=== PATIENT | male | born 1990 | race Caucasian/White ===

== ENCOUNTER 2022-09-27 15:50 | Emergency (ER) | payer OTHER, SELFPAY ==
[2022-09-27 16:04] VITALS: BP 119/69; PULSE 76; RESP 16; TEMP 36.3; O2SAT 99
--- NOTE | 2022-09-27 16:25 | ED.URI ---
HPI - URI/Sore Throat General Chief Complaint: Upper Respiratory Infection Stated Complaint: sinus inf Time Seen by Provider: 09/27/22 16:09 Source: patient and RN notes reviewed Mode of arrival: ambulatory Limitations: no limitations History of Present Illness HPI Narrative: Patient presents today complaining of a 3 day history of nasal congestion, severe sinus pressure, postnasal drip, dry cough. Denies fever, shortness of breath, sore throat. Denies history of asthma. He is a nonsmoker. He has taken 1 dose of Claritin and 1 dose of ibuprofen without much relief. Related Data Allergies Allergy/AdvReac Type Severity Reaction Status Date / Time clarithromycin [From Biaxin] Allergy Unknown Verified 09/27/22 16:10 Review of Systems Review of Systems: CONSTITUTIONAL: Denies body aches, fever, chills, or sweats. EYES: Denies visual changes, redness, or discharge. ENT: Denies rhinorrhea, sore throat, or otalgia.+ congestion, postnasal drip CARDIOVASCULAR: Denies chest pain, palpitations, or edema. RESPIRATORY: Denies dyspnea.+ dry cough GASTROINTESTINAL: Denies abdominal pain, nausea, vomiting, or diarrhea. GENITOURINARY: Denies dysuria or hematuria. SKIN: Denies rash, itching, or wounds. MUSCULOSKELETAL: Denies back pain, joint pain, or myalgia. NEUROLOGIC: Denies headache, numbness, tingling, or weakness. PSYCH: Denies depression or anxiety. PMFSH Comments At time of signature, I have reviewed and agree with nursing past medical, surgical, social and family history unless otherwise noted. Please see nursing chart for further information. There is no relevant family history pertinent to the presenting complaint Exam Narrative: GENERAL: Mildly ill-appearing, well-nourished, and in no acute distress. HEAD: Normocephalic, atraumatic. EYES: EOMI. No redness or drainage. Conjunctivae normal. ENT: Mucous membranes pink and moist. Nares congested with rhinorrhea. No maxillary or frontal sinus tenderness. TMs normal bilaterally. Throat normal. Uvula midline. NECK: Normal AROM. Supple. No lymphadenopathy. CHEST: No respiratory distress. Clear to auscultation. HEART: Regular rate and rhythm. No murmur appreciated. EXTREMITIES: Normal range of motion. No edema. SKIN: Warm, dry, no rash. Capillary refill normal. Normal skin turgor. NEURO: No focal deficits. Alert and oriented x3. Gait steady. PSYCH: Normal affect. No signs of depression or anxiety. Course Course Level of Care: Express Care Visit Vital Signs Vital signs: Vital Signs Temperature 97.4 F L 09/27/22 16:04 Pulse Rate 76 09/27/22 16:04 Respiratory Rate 16 09/27/22 16:04 Blood Pressure 119/69 09/27/22 16:04 Pulse Oximetry 99 09/27/22 16:04 Temperature 97.4 F L 09/27/22 16:04 Pulse Rate 76 09/27/22 16:04 Respiratory Rate 16 09/27/22 16:04 Blood Pressure 119/69 09/27/22 16:04 Pulse Oximetry 99 09/27/22 16:04 Reviewed MDM - URI/Sore Throat MDM Narrative Medical decision making narrative: Symptoms likely viral in etiology. Due to patient's severe sinus congestion I will treat with a short course of prednisone as well as suggestions for [id number] medications. Anticipatory guidance given. Differential Diagnosis Differential diagnosis: Likely upper respiratory infection, sinusitis, viral infection and bronchitis Critical Care Time Critical Care Time Critical Care Time: No Discharge Plan Discharge Clinical Impression: Upper respiratory infection Qualifiers: URI type: unspecified URI Qualified Code(s): J06.9 - Acute upper respiratory infection, unspecified Patient Disposition: Home, Self-Care Condition: Stable Instructions: Upper Respiratory Infection (DC) Additional Instructions: Your symptoms are likely due to a viral illness, which is not treated with antibiotics. Virus symptoms can last for up to 7-10 days. Take Tylenol or ibuprofen for pain or fever. Consider a decongestant olson
== END 2022-09-27 16:31 | disposition home or self-care (01) ==
PROVIDERS: Emergency Provider Nurse Practitioner; PCP Internal Medicine
DX: J06.9 Acute upper respiratory infection, unspecified (principal)
CPT/HCPCS: 99213; G0463

== ENCOUNTER 2022-12-03 03:50 | Emergency (ER) | payer OTHER, SELFPAY ==
[2022-12-03] VITALS (24 sets, daily range): BP systolic 101–155; BP diastolic 61–88; PULSE 50–84; RESP 12–29; TEMP 36.6; O2SAT 96–100
--- NOTE | ~2022-12-03 | CT_ITS ---
Non-contrast CT scan of the Abdomen and Pelvis Clinical indication: Right flank pain Technique: 2.5 mm axial scans were obtained through the abdomen and pelvis without intravenous or or al contrast. Dose reduction technique was used on this scan by utilizing automated exposure control a nd iterative reconstruction technique. The dose-length product (DLP) was 782.11 mGy-cm. Findings: Images through the lung bases reveal no abnormalities. There is no evidence of renal or ureteral calculi. The kidneys and the ureters are nondilated. The liver, spleen, pancreas, gallbladder, and adrenals appear normal. There is no aortic aneurysm. There is no evidence of bowel obstruction. Images through the pelvis were performed. There is no evidence of ascites or lymphadenopathy. Urinary bladder unremarkable. Prostate gland and seminal vesicles are unremarkable. Bilateral L5 pars intera rticularis defects are present. Impression: No acute abnormality. Bilateral L5 pars interarticularis defects. Reviewed, dictated and finalized at [facility]. Impression: No acute abnormality. Bilateral L5 pars interarticularis defects.
--- NOTE | 2022-12-03 04:04 | ECG_ITS ---
Measurements Intervals [place] Rate: 54 P: 69 DE: 277 QRS: 78 QRSD: 95 T: 47 QT: 399 QTc: 381 Interpretive Statements SINUS BRADYCARDIA WITH FIRST DEGREE AV BLOCK ABNORMAL ECG NO PREVIOUS ECG AVAILABLE FOR COMPARISON Electronically Signed On 12-03-2022 9:17:20 CDT by Chris Chase M.D.
--- NOTE | 2022-12-03 04:08 | ED.SYNCOPE ---
HPI - Syncope General Chief Complaint: Urogenital-Male Stated Complaint: R flank pain Time Seen by Provider: 12/03/22 03:56 History of Present Illness HPI narrative: 32-year-old male presents here with syncope, he states that he woke up due to severe pain in his right flank, though not the worst pain he has ever had, and then felt like the urge to go to the bathroom, when he went to the bathroom he started feeling like he was going to pass out. He felt lightheaded and had sensation of vision going [place], he manually tried to get back into bed and lay down until his girlfriend called the ambulance, at which point he passed out. When he woke up he was feeling better, went to walk to the closet and then started feeling bad again and then lay back down and passed out again. Each time lasted only seconds, the second time when he woke up he was feeling slightly better and told his girlfriend to call for ambulance but they were already coming. He has never had history of kidney stones before, he has had syncope in the past. No chest pain or difficulty breathing. Unsure if there is any hematuria. Related Data Allergies Allergy/AdvReac Type Severity Reaction Status Date / Time clarithromycin [From Biaxin] Allergy Unknown Verified 12/03/22 03:57 Review of Systems Review of Systems: CONST: No fever. HEENT: No sore throat C/V: No chest pain RESP: No cough GI: Right flank pain : No dysuria. M/S: No joint pain. SKIN: No rash. NEURO: Syncope PSYCH: [No depression] Exam Narrative: EXAMINATION OF ORGAN SYSTEMS/BODY AREAS: Constitutional: Vital signs per nursing GENERAL:[No acute distress, non-toxic appearing.] HEAD: Normal with no signs of head trauma. EYES: EOMI, conjunctiva normal ENT: Hearing grossly intact LUNGS: Nonlabored breathing. HEART: [Regular rate and rhythm] ABD: [Soft], [nontender to palpation] EXT: Normal range of motion SKIN: [No rashes or lesions.] NEURO: [Alert and oriented x 3. No gross focal sensory or strength deficits.] PSYCH: Normal affect Course Vital Signs Vital signs: Vital Signs Temperature 97.8 F 12/03/22 03:54 Pulse Rate 69 12/03/22 03:54 Respiratory Rate 16 12/03/22 03:54 Blood Pressure 110/67 12/03/22 03:54 Pulse Oximetry 100 12/03/22 03:54 Oxygen Delivery Room Air 12/03/22 03:54 Temperature 97.8 F 12/03/22 03:54 Pulse Rate 59 L 12/03/22 06:27 Respiratory Rate 21 H 12/03/22 06:27 Blood Pressure 109/67 12/03/22 06:27 Pulse Oximetry 96 12/03/22 06:27 Oxygen Delivery Room Air 12/03/22 03:54 MDM - Syncope MDM Narrative Medical decision making narrative: 32-year-old male presents here with syncope, he had had some right-sided back pain since yesterday after working out, and woke up this morning due to the pain, then had few episodes of syncope with prodrome. Abdomen is soft and nontender, no CVA tenderness with some very minimal tenderness to palpation of the right back, cardiopulmonary exam and neurologic exam normal. He is healthy without any medical issues, but he does state that one of his cousins mysteriously at the age of 24 although that cousin did have a history of drug use and had been found to have a lot of dextromethorphan in his system. He is well-appearing here overall and is denying any symptoms other than some pain to his back, CT obtained here does not show any kidney stone or other acute abnormality and no signs of appendicitis without any inflammation; does show pars defect on the left let the patient know he needs to take a break from heavy exercise and follow-up with orthopedics. Labs within acceptable limits including a negative troponin. He did have a prodrome prior to syncopized and EKG shows only prolonged MT interval without any obvious signs of other arrhythmia, and he is agreeable to outpatient follow-up. I will also order a Holter monitor and he is willing to stay for that. Strict turn precautions are discussed
[2022-12-03 04:20] LABS: Basophils Percent Auto 0.4 % (0.2-1.2); Eosinophils Absolute Auto 0.2 K/mm3 (0-0.3); Eosinophils Percent Auto 3.1 % (0-4.4); Hematocrit 42.6 % (42.0-52.0); Hemoglobin 14.4 g/dL (14.0-18.0); Immature Granulocyte Absolute 0.02 K/mm3 (0.00-0.031); Immature Granulocyte Percent A 0.3 % (0-0.5); Lymphocytes Absolute Auto 2.09 K/mm3 (0.9-3.2); Lymphocytes Percent Auto 27.2 % (18.3-44.2); Mean Corpuscular HGB Conc 33.8 g/dl (32-36); Mean Corpuscular Hemoglobin 31.3 pg (26-34); Mean Corpuscular Volume 92.6 fl (80-100); Mean Platelet Volume 10.2 fl (7.4-10.4); Monocytes Absolute Auto 0.6 K/mm3 (0.1-0.6); Monocytes Percent Auto 8.2 % (2.6-8.5); Neutrophils Absolute Auto 4.7 K/mm3 (1.3-6.7); Neutrophils Percent Auto 60.8 % (45.5-73.1); Platelet Count Result 146 k/mm3 (150-375); Red Cell Distribution Width 12.4 % (11.5-14.5); White Blood Count 7.7 K/mm3 (4.5-10.0)
[2022-12-03 04:21] LABS: Appearance Urine Clear (Clear); Bilirubin Urine Negative (Negative); Blood Urine Negative (Negative); Color Urine Yellow (Yellow); Glucose Urine UA Negative (Negative); Ketones Urine Negative (Negative); Leukocyte Esterase Ur Negative LEU/UL (Negative); Nitrate Urine Negative (Negative); Protein Urine Negative (Negative); Specific Grav Ur 1.012 (1.001-1.035); pH Urine 5.5 (5.0-9.0)
[2022-12-03 04:25] LABS: Add Urine Microscopic? NO
[2022-12-03 04:29] LABS: Anion Gap 5 mmol/L (8-16); Blood Urea Nitrogen 18 mg/dL (9-20); Calcium 8.9 mg/dL (8.4-10.2); Carbon Dioxide 26 mmol/L (22-30); Chloride 104 mmol/L (98-107); Estimated CRCL calculation 99 ml/min; Estimated Glomerular Filt Rate > 60; Glucose 114 mg/dL (65-110); Potassium 3.5 mmol/L (3.4-5.0); Sodium 135 mmol/L (137-145)
[2022-12-03 04:41] LABS: Troponin I < 0.012 ng/mL (0.000-0.034)
--- NOTE | 2022-12-03 07:15 | PC.NURSE ---
Patient report received from NANI Scales. All questions answered and care of patient assumed.
[2022-12-03] MEDS: KETOROLAC 30 MG/ML VIAL (*BKC) IM (07:27)
[2022-12-03] MEDS: diazePAM (*CRX) 5 MG TABLET PO (07:27)
[2022-12-03] MEDS: LIDOCAINE 5% PATCH 1 PATCH TRANSDERM (07:28)
--- NOTE | 2022-12-03 08:27 | PC.NURSE ---
Cardiology notified of holter monitor order.
--- NOTE | 2022-12-07 16:26 | WPDHOLTEREM ---
Holter/Event Monitor Holter/Event Monitor Date of procedure: 12/03/22 Holter/Event Procedure: 24 Hr Holter Monitor Indications: Syncope Conclusion: 1. 24 hour holter monitor on 12/03/22. 2. Underlying rhythm is sinus rhythm. HR range 36-133 bpm; average HR 64 bpm. HR at 36 bpm was at 01:43. HR at 133 bpm was at 20:33. 3. There is 1 premature supraventricular complex. No supraventricular tachycardia. 4. There is 1 premature ventricular complex. No ventricular tachycardia. 5. No sinoatrial or atrioventricular blocks. No significant pauses greater than 2 seconds. 6. No symptoms available for correlation.
== END 2022-12-03 09:40 | disposition home or self-care (01) ==
PROVIDERS: Emergency Medicine; Emergency Provider Preventive Medicine Aerospace Medicine; PCP Internal Medicine
DX: M54.9 Dorsalgia, unspecified (principal); R55 Syncope and collapse; Z87.442 Personal history of urinary calculi; R00.1 Bradycardia, unspecified; I44.0 Atrioventricular block, first degree
CPT/HCPCS: 36415; 74176; 80048; 81003; 84484; 85025; 93005; 93225; 93226; 96372; 99284; A9270; J1885